=== PATIENT | male | born 1950 | race Caucasian/White ===

== ENCOUNTER 2023-11-02 07:41 | Outpatient (RCR) | payer MEDICARE, OTHER, SELFPAY ==
[2023-11-02 07:50] VITALS: BP 141/53
[2023-11-02] MEDS: FERAHEME 117 MG IV (08:08)
[2023-11-02] MEDS: NSS 250 IV (08:08)
[2023-11-02 08:45] VITALS: BP 128/49
== END 2023-11-25 23:59 | disposition home or self-care (01) ==
LOC: OID 07:41
PROVIDERS: ATTENDING PHYSICIAN Specialist; FAMILY PHYSICIAN Family Medicine
DX: N18.4 Chronic kidney disease, stage 4 (severe) (principal); D63.1 Anemia in chronic kidney disease; D50.9 Iron deficiency anemia, unspecified
CPT/HCPCS: 96365; Q0138